=== PATIENT | male | born 1990 | race African-American/Black ===

== ENCOUNTER 2018-02-10 14:49 | Emergency (ER) | payer SELFPAY ==
[2018-02-10 15:14] VITALS: BP 113/78; PULSE 72; TEMP 98; BMI 21.7
--- NOTE | 2018-02-10 15:15 | PDOC ---
Rapid Medical Evaluation Chief Complaint: Pain, Acute Time Seen by Provider: 02/10/18 15:11 Medical Evaluation: Allergies Allergy/AdvReac Type Severity Reaction Status Date / Time No Known Allergies Allergy Verified 02/10/18 15:09 02/10/18 15:11 I have performed a brief in-person evaluation of this patient. The patient presents with a chief complaint of: abd pain, x 1 week. Pertinent physical exam findings: soft/ flat, no rebound or guarding, + gas- 2 diarhea today I have ordered the following: nothing The patient will proceed to the ED for further evaluation.
--- NOTE | 2018-02-10 16:24 | PDOC ---
History of Present Illness - General Chief Complaint: Pain, Acute Stated Complaint: ABD PAIN Time Seen by Provider: 02/10/18 15:11 History Source: Patient Exam Limitations: No Limitations - History of Present Illness Travel History: No Initial Comments: 02/10/18 17:05 89-year-old male presents to the ED with complaints of intermittent periumbilical cramping for the past week associated with approximately 1-2 episodes of brown watery stool a day without abdominal distention, fever, chills , nausea, decreased by mouth or liquid intake, recent travel, recent illness. Patient denies GI disorders, medical history. Patient denies drug or alcohol use and states works out daily. Timing/Duration: reports: intermittent Quality: reports: mild, cramping Abdominal Pain Onset Location: reports: periumbilical Pain Radiation: reports: no radiation Activities at Onset: reports: none Aggravating Factors: improves with: None Alleviating Factors: improves with: None Past History - Travel Traveled outside of the country in the last 30 days: No - Past Medical History Allergies/Adverse Reactions: Allergies Allergy/AdvReac Type Severity Reaction Status Date / Time Penicillins Allergy Severe Difficulty Verified 02/10/18 15:14 Breathing COPD: No - Immunization History Immunization Up to Date: Yes - Suicide/Smoking/Psychosocial Hx Smoking History: Never smoked Patient Lives Alone: No Lives with/in: spouse/SO Review of Systems - Review of Systems Able to Perform ROS?: No Constitutional: No: Symptoms Reported HEENTM: No: Symptoms Reported Respiratory: No: Symptoms reported Cardiac (ROS): No: Symptoms Reported ABD/GI: Yes: Diarrhea, Abdominal cramping : No: Symptoms Reported Musculoskeletal: No: Symptoms Reported Integumentary: No: Symptoms Reported Neurological: No: Symptoms reported *Physical Exam - Vital Signs Last Vital Signs Temp Pulse Resp BP Pulse Ox 98.0 F 72 20 113/78 100 02/10/18 15:09 02/10/18 15:09 02/10/18 15:02/10/18 15:02/10/18 15:09 - Physical Exam General Appearance: Yes: Nourished, Appropriately Dressed. No: Apparent Distress HEENT: positive: EOMI, MARIA ESTHER. negative: Pale Conjunctivae Neck: positive: Supple Respiratory/Chest: positive: Lungs Clear, Normal Breath Sounds. negative: Respiratory Distress, Accessory Muscle Use Cardiovascular: positive: Regular Rhythm, Regular Rate. negative: Murmur Gastrointestinal/Abdominal: positive: Normal Bowel Sounds, Soft. negative: Distended, Guarding, Rebound, Tenderness, Hernia, Mass Musculoskeletal: negative: CVA Tenderness Extremity: positive: Normal Capillary Refill Integumentary: positive: Normal Color, Warm, Moist Neurologic: positive: Motor Strength 5/5 (ambulatory) ED Treatment Course - LABORATORY CBC & Chemistry Diagram: 02/10/18 16:27 02/10/18 16:27 Medical Decision Making - Medical Decision Making 02/10/18 17:08 Patient for evaluation of intermittent periumbilical cramping associated with diarrhea for the past week. Patient exhibited no acute findings. Vital signs stable. Patient will likely viral enteritis. Patient will have labs done including a urine to rule out electrolyte derangement versus infectious process. 02/10/18 17:30 Laboratory Tests 02/10/18 16:27 WBC 7.6 Hgb 14.9 Hct 45.1 Plt Count 216 Lymphocytes % 41.3 H 02/10/18 18:34 Laboratory Tests 02/10/18 16:27 Sodium 139 Potassium 4.1 Chloride 104 Carbon Dioxide 31 Anion Gap 4 L BUN 9 Creatinine 0.9 Random Glucose 78 Calcium 9.0 Magnesium 2.4 Total Bilirubin 0.6 AST 493 H ALT 120 H Patient ordered for abdominal ultrasound limited to visualize the liver.
[2018-02-10 17:09] LABS: BASO % 0.5 % (0-2.0); EOS % 3.3 % (0-4.5); HEMATOCRIT 45.1 % (35.4-49); HEMOGLOBIN 14.9 GM/dL (11.7-16.9); LYMPH % 41.3 % (8-40); MCH 28.7 pg (25.7-33.7); MEAN PLT VOLUME 9.5 fl (7.5-11.1); MONO % 6.9 % (3.8-10.2); PLATELET COUNT 216 K/MM3 (134-434); RBC 5.19 M/mm3 (4.00-5.60); RDW 14.2 % (11.9-15.9); WHITE BLOOD COUNT 7.6 K/mm3 (4.0-10.0)
[2018-02-10 17:28] LABS: URINE APPEARANCE CLEAR; URINE BILIRUBIN NEGATIVE (<2.0 mg/dL); URINE BLOOD 3+ (NEGATIVE); URINE COLOR YELLOW; URINE GLUCOSE (UA) NEGATIVE (NEGATIVE); URINE KETONE NEGATIVE (NEGATIVE); URINE LEUK ESTERASE NEGATIVE (NEGATIVE); URINE NITRITE NEGATIVE (NEGATIVE)
[2018-02-10 17:41] LABS: ALBUMIN 4.3 g/dl (3.4-5.0); ALK PHOS 55 U/L (45-117); ANION GAP 4 (8-16); BILIRUBIN,TOTAL 0.6 mg/dL (0.2-1.0); BLOOD UREA NITROGEN 9 mg/dL (7-18); CHLORIDE 104 mmol/L (98-107); CO2 31 mmol/L (21-32); CREATININE 0.9 mg/dL (0.7-1.3); GLUCOSE,RANDOM 78 mg/dL (74-106); MAGNESIUM 2.4 mg/dL (1.8-2.4); POTASSIUM 4.1 mmol/L (3.5-5.1); SGPT/ALT 120 U/L (12-78); SODIUM 139 mmol/L (136-145)
[2018-02-10 17:52] LABS: SGOT/AST 493 U/L (15-37)
[2018-02-10 18:36] LABS: URINE PROTEIN 1+ (NEGATIVE)
--- NOTE | 2018-02-10 19:41 | PDOC ---
*Physical Exam - Vital Signs Last Vital Signs Temp Pulse Resp BP Pulse Ox 98.0 F 72 20 113/78 100 02/10/18 15:09 02/10/18 15:09 02/10/18 15:09 02/10/18 15:09 02/10/18 15:09 - Physical Exam General Appearance: Yes: Nourished, Appropriately Dressed. No: Apparent Distress HEENT: positive: Normal Voice Neck: positive: Supple Respiratory/Chest: negative: Respiratory Distress Gastrointestinal/Abdominal: positive: Normal Bowel Sounds. negative: Tender, Soft, Distended, Guarding, Rebound, Hernia Musculoskeletal: negative: CVA Tenderness Integumentary: positive: Dry, Warm Neurologic: positive: Fully Oriented, Alert, Normal Mood/Affect ED Treatment Course - LABORATORY CBC & Chemistry Diagram: 02/10/18 16:27 02/10/18 16:27 - ADDITIONAL ORDERS Additional order review: Laboratory Results 02/10/18 02/10/18 17:00 16:27 Sodium 139 Potassium 4.1 Chloride 104 Carbon Dioxide 31 Anion Gap 4 L BUN 9 Creatinine 0.9 Creat Clearance w eGFR > 60 Random Glucose 78 Calcium 9.0 Magnesium 2.4 Total Bilirubin 0.6 AST 493 H ALT 120 H Alkaline Phosphatase 55 Total Protein 8.0 Albumin 4.3 Urine Color Yellow Urine Appearance Clear Urine pH 6.0 Ur Specific [place] 1.016 Urine Protein 1+ H Urine Glucose (UA) Negative Urine Ketones Negative Urine Blood 3+ H Urine Nitrite Negative Urine Bilirubin Negative Urine Urobilinogen 2.0 Ur Leukocyte Esterase Negative 02/10/18 16:27 RBC 5.19 MCV 87.0 MCHC 33.0 RDW 14.2 MPV 9.5 Neutrophils % 48.0 Lymphocytes % 41.3 H Monocytes % 6.9 Eosinophils % 3.3 Basophils % 0.5 Medical Decision Making - Medical Decision Making 02/10/18 19:20 Pt signed out at 7pm 27 yo M, denies any pmhx, and switched periumbilical pain for one week. Exam w. benign abd per prior team. Labs remarkable for slight elevation in LFTs. Ultrasound pending. Per prior [employer] PASTRY CHEF, if US neg, pt can be discharged to follow-up with primary care physician 02/10/18 19:50 US negative for gallstones with liver and pancreas documented as unremarkable. Pt pain free at this time and appears well. Given copy of ultrasound report and labs to follow up with his PMD for further evaluation if pain continues *DC/Admit/Observation/Transfer Diagnosis at time of Disposition: Abdominal pain Qualifiers: Abdominal location: unspecified location Qualified Code(s): R10.9 - Unspecified abdominal pain - Discharge Dispostion Disposition: HOME Condition at time of disposition: Good - Referrals Referrals: Shakeel Hagan MD [Staff Physician] - - Patient Instructions Printed Discharge Instructions: DI for Abdominal Pain-Adult Additional Instructions: The cause of your abdominal pain is unclear at this time. The only abnormality on your blood work was that your liver tests were slightly elevated. Your ultrasound shows no gallstone with unremarkable liver and pancreas. Please follow-up with your primary care physician for further evaluation - Post Discharge Activity Forms/Work/School Notes: Back to Work
[2018-02-10 19:50] LABS: EPI CELLS RARE /HPF (FEW); URINE MUCUS RARE
== END 2018-02-10 19:52 | disposition home or self-care (01) ==
LOC: JER 14:49
DX: R10.33 Periumbilical pain (principal); R19.7 Diarrhea, unspecified
CPT/HCPCS: 36415; 76705-TC; 80053; 81003; 81015; 83735; 85025; 99282-25